=== PATIENT | female | born 1945 | race Hispanic/Latino ===

== ENCOUNTER 2017-03-14 17:10 | Inpatient (IN) | payer MEDICARE, MEDICAID ==
[2017-03-14 18:08] LABS: BASO # 0.1 K/uL (0.0-0.2); BASO % 1.2 % (0.0-2.0); EOS # 0.2 K/uL (0.0-0.7); EOS % 2.7 % (0.0-4.0); HEMATOCRIT 39.1 % (34.0-47.0); LYMPH % 29.7 % (20.0-40.0); MEAN CELL VOLUME 89.6 fl (81.0-99.0); MEAN CORPUSCULAR HEMOGLOBIN 30.5 pg (27.0-31.0); MEAN PLATELET VOLUME 6.9 fl (7.2-11.7); MONO # 0.5 K/uL (0.0-0.8); MONO % 8.1 % (0.0-10.0); NEUT # 3.8 K/uL (1.8-7.0); NEUT % 58.3 % (50.0-75.0); NRBC % 0.1 % (0.0-0.0); RED CELL DISTRIBUTION WIDTH 14.2 % (11.5-14.5); WHITE BLOOD COUNT 6.6 K/uL (4.8-10.8)
--- NOTE | 2017-03-14 18:10 | ED PDOC ---
HPI: Psych/Substance Abuse Time Seen by Provider: 03/14/17 17:25 Chief Complaint (Nursing): Psychiatric Evaluation Chief Complaint (Provider): Refusal to eat and changes in behavior, including aggression ED Caveat: Dementia History Per: EMS History/Exam Limitations: no limitations Onset/Duration Of Symptoms: Hrs Current Symptoms Are (Timing): Still Present Additional Complaint(s): Patient is a 71 year old female with a past medical history of Parkinson's, dementia, and diabetes who was transferred from [facility] in [place], [place] for refusal to eat and new changes in behavior including aggression towards staff. Denies any other medical complaints. PCP: Dr. Gary Gipson. Past Medical History Reviewed: Historical Data, Nursing Documentation, Vital Signs Vital Signs: Last Vital Signs Temp 98.6 F 03/14/17 17:12 Pulse 80 03/14/17 17:12 Resp 20 03/14/17 17:12 BP 149/86 03/14/17 17:12 Pulse Ox 100 03/14/17 17:12 - Medical History PMH: COPD, Dementia, Diabetes, HTN, Hypothyroidism, Parkinson's Disease, Schizophrenia Denies: Hepatitis, HIV, Chronic Kidney Disease, Seizures, Sexually Transmitted Disease - Surgical History Surgical History: No Surg Hx - Family History Family History: States: Unknown Family Hx - Living Arrangements Living Arrangements: Shelter/Assist [place] - Home Medications Home Medications: Ambulatory Orders Medication Instructions Recorded Ascorbic Acid [Vitamin C 500 mg 500 mg PO DAILY 08/04/16 Tab] Carbidopa/Levodopa 2 tab PO TID 08/04/16 [Carbidopa-Levodopa 25-100 Tab] Cholecalciferol (Vitamin D3) 2,000 unit PO DAILY 08/04/16 [Vitamin D3] Docusate [Colace] 100 mg PO BID PRN 08/04/16 Levothyroxine [Synthroid] 100 mcg PO DAILY 08/04/16 Multivitamin [Multi-Vitamin Daily] 1 tab PO DAILY 08/04/16 Polyethylene Glycol/Polyvinyl 1 drop EACHEYE TID PRN 08/04/16 [Artificial Tears] Pramipexole Di-HCl [Mirapex] 0.25 mg PO TID 08/04/16 Sitagliptin Phos/Metformin HCl 1 tab PO Q12H 08/04/16 [Janumet 50-1,000 mg Tablet] Albuterol/Ipratropium [Duoneb 3 3 ml INH RQ6 PRN #0 neb 08/11/16 mg/0.5 mg (3 ml) UD] OLANZapine [Zyprexa] 10 mg PO DAILY@1700 tab 08/11/16 Sulfamethoxazole/Trimethoprim 1 tab PO Q12 tab 08/11/16 [Bactrim DS Tab] - Allergies Allergies/Adverse Reactions: Allergies Allergy/AdvReac Type Severity Reaction Status Date / Time Penicillins Allergy RASH Verified 08/05/16 00:28 Review of Systems Review Of Systems: ROS cannot be obtained secondary to pt's inabilty to answer questions. (Patient is non-verbal.) Physical Exam - Reviewed Nursing Documentation Reviewed: Yes Vital Signs Reviewed: Yes - Physical Exam Cardiovascular/Chest: Positive for: Regular Rate, Rhythm. Negative for: Murmur Respiratory: Positive for: Normal Breath Sounds. Negative for: Accessory Muscle Use, Respiratory Distress Gastrointestinal/Abdominal: Positive for: Normal Exam, Soft. Negative for: Tenderness Extremity: Positive for: Other (Pill rolling tremor on upper extremities) Neurologic/Psych: Positive for: Alert, Other (Patient is non verbal). Negative for: Motor/Sensory Deficits (No focal) - Laboratory Results Result Diagrams: 03/14/17 17:42 - ECG O2 Sat by Pulse Oximetry: 100 (RA) Pulse Ox Interpretation: Normal Medical Decision Making Medical Decision Making: Time: 17:32 Initial impression: Changes in behavior Initial plan: * EKG * Labs * Urine Dipstick * Chest X-Ray Scribe Attestation: Documented by Aleida Griffith, acting as a scribe for Lane Lawson MD. Provider Scribe Attestation: All medical record entries made by the Scribe were at my direction and personally dictated by me. I have reviewed the chart and agree that the record accurately reflects my personal performance of the history, physical exam, medical decision making, and the department course for this patient. I have also personally directed, reviewed, and agree with the discharge instructions and disposition. Disposition - Clinical Impression Clinical Impression: Hypoglycemia, Schizophrenia, Dementia - Patient ED Disposition Is Patient to be Admitted: Yes - Disposition Disposition Time: 18:33 Condition: FAIR Forms: [employer] ([place]) - Pt Status Changed To: Hospital Disposition Of: Observation - POA Present On Arrival: None
[2017-03-14 18:21] LABS: CHLORIDE 100 mmol/L (98-107); POTASSIUM 4.3 MMOL/L (3.6-5.0); SODIUM 137 mmol/l (132-148)
[2017-03-14 18:23] LABS: BILIRUBIN,TOTAL 0.3 mg/dl (0.2-1.3); CARBON DIOXIDE 28 mmol/L (22-30); GFR AFRICAN-AMERICAN > 60
[2017-03-14 18:24] LABS: ALB/GLOB RATIO 0.8 (1.0-2.1); ALKALINE PHOSPHATASE 76 U/L (38-126); ALT/SGPT 23 U/L (9-52); AST/SGOT 31 U/L (14-36); BLOOD UREA NITROGEN 16 mg/dl (7-17); CALCIUM 9.8 mg/dL (8.4-10.2); GLUCOSE,RANDOM 83 mg/dL (65-105); TOTAL PROTEIN 8.3 G/DL (6.3-8.2)
[2017-03-14] MEDS ORDERED: Dextrose 50% SYRINGE Inj (50 ml) IVP ONE ×2 (18:32→23:24)
[2017-03-14] MEDS ORDERED: Dextrose 50% SYRINGE Inj (50 ml) ONE (18:38)
--- NOTE | 2017-03-14 18:46 | RAD ---
HISTORY: cough COMPARISON: No prior. FINDINGS: LUNGS: Mild hyperinflation with coarsened/ increased interstitial markings particularly prominent in the mid to lower lung zones. Rule out chronic changes of COPD or emphysema. There also appears to be some mild bibasilar atelectasis and or scarring right greater than left. . Chain sutures again noted left lung apex/upper lung field Mild biapical pleural thickening PLEURA: No effusion. No apparent pneumothorax apparent. CARDIOVASCULAR: Heart size within range of normal metallic clips again seen in the left hilar region. OSSEOUS STRUCTURES: No significant abnormalities. VISUALIZED UPPER ABDOMEN: Normal. OTHER FINDINGS: None. IMPRESSION: Mild hyperinflation with coarsened/ increased interstitial markings particularly prominent in the mid to lower lung zones. Rule out chronic changes of COPD or emphysema. There also appears to be some mild bibasilar atelectasis and or scarring right greater than left. See above discussion for additional findings and details. Mild biapical pleural thickening
[2017-03-14] MEDS: Dextrose 5%/0.45% NS 1,000 ML IV SCH (23:05)
[2017-03-15] MEDS ORDERED: Dextrose 50% SYRINGE Inj (50 ml) IVP PRN (00:19)
[2017-03-15 05:23] LABS: BASO # 0.1 K/uL (0.0-0.2); BASO % 0.8 % (0.0-2.0); EOS # 0.2 K/uL (0.0-0.7); EOS % 3.1 % (0.0-4.0); HEMATOCRIT 37.8 % (34.0-47.0); LYMPH # 1.9 K/uL (1.0-4.3); LYMPH % 29.4 % (20.0-40.0); MEAN CELL VOLUME 90.5 fl (81.0-99.0); MEAN CORPUSCULAR HEMOGLOBIN 29.8 pg (27.0-31.0); MEAN CORPUSCULAR HGB CONC 32.9 g/dL (33.0-37.0); MONO # 0.5 K/uL (0.0-0.8); MONO % 8.7 % (0.0-10.0); NEUT # 3.7 K/uL (1.8-7.0); RED CELL DISTRIBUTION WIDTH 14.3 % (11.5-14.5); WHITE BLOOD COUNT 6.3 K/uL (4.8-10.8)
[2017-03-15 05:25] LABS: ALB/GLOB RATIO 0.9 (1.0-2.1); ALKALINE PHOSPHATASE 69 U/L (38-126); ALT/SGPT 21 U/L (9-52); AST/SGOT 21 U/L (14-36); BILIRUBIN,TOTAL 0.3 mg/dl (0.2-1.3); BLOOD UREA NITROGEN 16 mg/dl (7-17); CALCIUM 9.3 mg/dL (8.4-10.2); CARBON DIOXIDE 30 mmol/L (22-30); CHLORIDE 101 mmol/L (98-107); GFR AFRICAN-AMERICAN > 60; GLUCOSE,RANDOM 255 mg/dL (65-105); POTASSIUM 4.7 MMOL/L (3.6-5.0); SODIUM 138 mmol/l (132-148); TOTAL PROTEIN 7.4 G/DL (6.3-8.2)
[2017-03-15] MEDS: Enoxaparin 30 mg Syringe SC SCH (09:30)
--- NOTE | 2017-03-15 10:24 | CARD ---
APPROVED REPORT EKG Measurement Heart [id number] <Conclusion> Normal sinus rhythm Low voltage QRS Possible Inferior infarct, age undetermined Abnormal ECG artefact present-recommend repeat
[2017-03-15] MEDS ORDERED: Magnesium Hydroxide Susp 30 ml UD PO PRN (10:29)
[2017-03-15] MEDS ORDERED: Divalproex 125 mg Sprinkle Capsule PO SCH (10:30)
[2017-03-15] MEDS ORDERED: PIMAVANSERIN TARTRATE PO SCH (10:30)
[2017-03-15] MEDS ORDERED: Insulin Lispro (humaLOG) 100 Units/ml Inj SC SCH (11:30)
[2017-03-15] MEDS: Dextrose 5%/0.45% NS 1,000 ML IV SCH (12:17)
--- NOTE | 2017-03-15 13:48 | CP.PCM.CON ---
History of Present Illness - History of Present Illness History of Present Illness: psychiatry consult ordered by: ann reason: schizophrenia cc: i know who you are hpi: 71 yo female with history of schizophrenia per chart and also chart states pt has parkinson's as well as dementia. pt is living in a [place] [facility] and under the care of dr. trinidad for psychiatry there. she was apparently showing aggression and behavioral changes acutely. currently she is unable to provide any history and confabulates answers. past psych: was on [facility] in july and on zyprexa. since her return to [place] [facility] she seems to have been shifted to carbidopa, depakote and nuplazid ) prior to the step admission she was taking seroquel. per chart, her behaviors were stabilized on zyprexa. social history: lives in [place] [facility]. cannot give details. subtance abuse: none medical: as above. no h&p on chart to review. no ua or urine culture results. depakote level is 12 mse: pt oriented to self only. she is calm currently. she confabulates answers and does not directly answer questions. she is not exhibiting any psychotic symptoms when seen by this ad writer. she has gross impairments in i/j and memory. assessment: parkinsons disease with hallucinations ? history of schizophrenia per chart dementia per chart recommendations: pt lacks capacity to sign into a mental health facility as a voluntary pt her parkinsons should be managed by neurology would look for infections other causes for her mental status changes could use low dose of zyprexa prn for psychosis/agitation- 2.5 mg prn and monitor for eps/dystonia would avoid use of anticholinergics and benzodiazapines as they may worsen her confusion can adjust depakote upwards for agitation- would recheck level in 2-3 days Past Patient History - Past Medical History & Family History Past Medical History?: Yes - Past Social History Smoking Status: Unknown If Ever Smoked - CARDIAC Hx Cardiac Disorders: Yes Hx Hypertension: Yes - PULMONARY Hx Respiratory Disorders: Yes Hx Chronic Obstructive Pulmonary Disease (COPD): Yes - NEUROLOGICAL Hx Neurological Disorder: Yes Hx Dementia: Yes Hx Parkinson's Disease: Yes Hx Seizures: No - HEENT Hx HEENT Problems: No - RENAL Hx Chronic Kidney Disease: No - ENDOCRINE/METABOLIC Hx Endocrine Disorders: Yes Hx Diabetes Mellitus Type 2: Yes Hx Hypothyroidism: Yes - HEMATOLOGICAL/ONCOLOGICAL Hx Blood Disorders: No Hx Human Immunodeficiency Virus (HIV): No - INTEGUMENTARY Hx Dermatological Problems: No - MUSCULOSKELETAL/RHEUMATOLOGICAL Hx Musculoskeletal Disorders: No Hx Falls: No - GASTROINTESTINAL Hx Gastrointestinal Disorders: Yes Hx Gastroesophageal Reflux: Yes - GENITOURINARY/GYNECOLOGICAL Hx Genitourinary Disorders: No Hx Sexually Transmitted Disorders: No - PSYCHIATRIC Hx Psychophysiologic Disorder: Yes Hx Schizophrenia: Yes - SURGICAL HISTORY Hx Surgeries: No Other/Comment: Lung Sx? - ANESTHESIA Hx Anesthesia: Yes Hx Anesthesia Reactions: No Meds Allergies/Adverse Reactions: Allergies Allergy/AdvReac Type Severity Reaction Status Date / Time Penicillins Allergy RASH Verified 08/05/16 00:28 - Medications Medications: Current Medications Ascorbic Acid (Vitamin C 500 Mg Tab) 500 mg PO DAILY [facility] Carbidopa/Levodopa (Sinemet) 2 tab PO TID [facility] Clonazepam (Klonopin) 1 mg PO DAILY [facility] Last Admin: 03/15/17 12:17 Dose: 1 mg Dextrose (Dextrose 50% Inj) 50 ml IVP PRN PRN PRN Reason: Low blood sugar Dimethicone (Proshield Plus Skin Protectant) 1 applic TOP Q8 [facility] Divalproex Sodium (Depakote Sprinkles) 250 mg PO Q8 [facility] Docusate Sodium (Colace) 100 mg PO BID [facility] Enoxaparin Sodium (Lovenox) 30 mg SC DAILY [facility] PRN Reason: Protocol Last Admin: 03/15/17 09:30 Dose: 30 mg Dextrose/Sodium Chloride (Dextrose 5%/0.45% Ns 1000 Ml) 1,000 mls @ 80 mls/hr IV .[id number] [facility] Stop: 03/15/17 22:21 Last Admin: 03/15/17 12:17 Dose: 80 mls/hr Levothyroxine Sodium (Synthroid) 150 mcg PO DAILY [facility] Magnesium Hydroxide (Milk Of Magnesia) 30 ml PO HS PRN PRN Reason: Constipation Megestrol Acetate (Megace) 20 mg PO DAILY [facility] Last Admin: 03/15/17 09:27 Dose: 20 mg Metformin HCl (Glucophage) 500 mg PO BID [facility] Sitagliptin Phosphate (Januvia) 100 mg PO DAILY [facility] Results - Vital Signs Recent Vital Signs: Last Vital Signs Temp 97.7 F 03/15/17 08:34 Pulse 112 H 03/15/17 08:34 Resp 20 03/15/17 08:34 BP 131/68 03/15/17 08:34 Pulse Ox 90 L 03/15/17 08:34 - Labs Result Diagrams: 03/15/17 04:20 03/15/17 04:20
[2017-03-15 17:32] LABS: T4 3.38 ug/dl (5.5-11.0)
[2017-03-15] MEDS: Divalproex 125 mg Sprinkle Capsule PO SCH (21:28)
[2017-03-15] MEDS ORDERED: Insulin Detemir 100 Units/ml Inj SC SCH (22:00)
[2017-03-15] MEDS: Insulin Regular 100 units/ml SC SCH (23:00)
[2017-03-16] MEDS ORDERED: Sodium Chloride 0.9% 1,000 ML IV SCH (00:45)
[2017-03-16] MEDS: Proshield Plus GEL TOP SCH ×3 (01:45→17:33)
[2017-03-16 02:48] LABS: VENOUS BLOOD GAS BASE EXCESS 6.5 mmol/L (0.0-2.0); VENOUS BLOOD GAS MODE ROOM AIR; VENOUS BLOOD GAS PCO2 62 mmHg (40-60); VENOUS BLOOD PH 7.35 (7.32-7.43)
[2017-03-16 02:50] LABS: CHLORIDE 98 mmol/L (98-107)
[2017-03-16 02:51] LABS: POTASSIUM 4.5 MMOL/L (3.6-5.0); SODIUM 138 mmol/l (132-148)
[2017-03-16 02:53] LABS: GFR AFRICAN-AMERICAN > 60
[2017-03-16 02:54] LABS: BLOOD UREA NITROGEN 14 mg/dl (7-17); CALCIUM 9.2 mg/dL (8.4-10.2); CARBON DIOXIDE 31 mmol/L (22-30); GLUCOSE,RANDOM 239 mg/dL (65-105)
[2017-03-16] MEDS: Divalproex 125 mg Sprinkle Capsule PO SCH ×3 (05:17→22:15)
[2017-03-16] MEDS: Insulin Regular 100 units/ml SC SCH ×4 (06:39→22:14)
[2017-03-16 08:48] VITALS: RESP 18
[2017-03-16] MEDS: Enoxaparin 30 mg Syringe SC SCH (09:14)
[2017-03-16] MEDS: Levothyroxine 150 MCG TAB PO SCH (09:15)
[2017-03-16 12:45] LABS: FOLATE > 20.0 ng/mL
[2017-03-16 12:59] LABS: RBC URINE 5 /hpf (0-3); URINE BILIRUBIN NEGATIVE (NEGATIVE); URINE BLOOD NEGATIVE (NEGATIVE); URINE COLOR YELLOW (YELLOW); URINE GLUCOSE (UA) NEG (Normal); URINE KETONE TRACE mg/dL (NEGATIVE); URINE LEUKOCYTE ESTERASE SMALL Leu/uL (Negative); URINE PROTEIN NEGATIVE (NEGATIVE); URINE UROBILINOGEN 0.2-1.0 mg/dL (0.2-1.0); WBC URINE 23 /hpf (0-5)
[2017-03-17] MEDS: Proshield Plus GEL TOP SCH ×3 (01:51→08:48)
[2017-03-17] MEDS: Divalproex 125 mg Sprinkle Capsule PO SCH (05:51)
[2017-03-17] MEDS: Insulin Regular 100 units/ml SC SCH (07:35)
[2017-03-17 08:08] VITALS: BP 95/59; PULSE 91; TEMP 97.9; O2SAT 95
--- NOTE | 2017-03-17 08:17 | CON ---
DATE OF EVALUATION: 03/16/2017 LOCATION: The patient is in room number 654, bed 2. REASON FOR CONSULTATION: Change in mental status. CHIEF COMPLAINT: The patient was admitted with past medical history of dementia as per the history from the [facility]. The patient did stop eating and have some aggressive behavior. From neurologic point of view, I was called in to evaluate her for further management. HISTORY OF PRESENT ILLNESS: Ms. Haily Nguyễn is a 71-year-old right handed female presenting with change in mental status. No clear history of involuntary movements. No history of fall. No history of loss of consciousness. Recommended a testing being on hold because she refuse to go for the testing. PAST MEDICAL HISTORY: Dementia, diabetes, hypertension, hypothyroidism, Parkinson's disease, and schizophrenia. PAST SURGICAL HISTORY: No surgical history. ALLERGIES: SHE IS ALLERGIC TO PENICILLIN. MEDICATIONS: Vitamin C, Sinemet, levothyroxine, multivitamins, pramipexole, Janumet, albuterol, olanzapine and Bactrim. REVIEW OF SYSTEMS: As per H and P. PHYSICAL EXAMINATION VITAL SIGNS: Blood pressure of 110/54, mean arterial pressure of 79, respiratory rate of 16 and temperature of 97.5. NECK: Supple. No carotid bruits. HEART: Sounds regular. CHEST: Fair air entry. EXTREMITIES: Right leg externally rotated. NEUROLOGIC EXAMINATION: MENTAL STATUS EXAMINATION: The patient is awake, alert and oriented to person and place. Speech is hypophonic and slurred. CRANIAL NERVE EXAMINATION: Right eye ptosis. 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 Hearing is normal. Tongue is midline. Good gag. Neck flexion is 4/5. MOTOR EXAMINATION: She could able to lift both upper extremities against gravity. A significant distal muscle group atrophy. DEEP TENDON REFLEXES: Are absent. The plantar are equally response. COORDINATION: She could able to do reach the target. CONCLUSION: Upon reviewing her history and neurological examination, Ms. 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 The patient is also suffering from other disorders; dementia and neuropathy. These are all preexisting condition. However, Parkinson's disease is being on medication. I could not able to quantify the disease pattern. RECOMMENDATIONS: 1. The patient should be kept aspiration precautions, speech and swallow evaluation. 2. The patient should have a blood workup for angiotensin receptor antibodies. 3. The patient can be benefitted because of considering her age, I would like to start empirically methionine to see the response. If no response, then I will discontinue it. 4. The patient is also recommended to have CT of the chest to rule out thymoma. The patient will be hydrated well. The patient will be followed closely while she is in the hospital. Nigel Herrera MD MTDD
[2017-03-17] MEDS: Enoxaparin 30 mg Syringe SC SCH (08:53)
[2017-03-17] MEDS: Levothyroxine 150 MCG TAB PO SCH (08:54)
--- NOTE | 2017-03-17 12:09 | CP.PCM.HP ---
History of Present Illness - History of Present Illness History of Present Illness: This is a 71 y/o female admitted for. Past Patient History - Past Medical History & Family History Past Medical History?: Yes - Past Social History Smoking Status: Unknown If Ever Smoked - CARDIAC Hx Cardiac Disorders: Yes Hx Hypertension: Yes - PULMONARY Hx Chronic Obstructive Pulmonary Disease (COPD): Yes - NEUROLOGICAL Hx Neurological Disorder: Yes Hx Dementia: Yes Hx Parkinson's Disease: Yes Hx Seizures: No - HEENT Hx HEENT Problems: No - RENAL Hx Chronic Kidney Disease: No - ENDOCRINE/METABOLIC Hx Diabetes Mellitus Type 2: Yes Hx Hypothyroidism: Yes - HEMATOLOGICAL/ONCOLOGICAL Hx Blood Disorders: No Hx Human Immunodeficiency Virus (HIV): No - INTEGUMENTARY Hx Dermatological Problems: No - MUSCULOSKELETAL/RHEUMATOLOGICAL Hx Musculoskeletal Disorders: No Hx Falls: No - GASTROINTESTINAL Hx Gastroesophageal Reflux: Yes - GENITOURINARY/GYNECOLOGICAL Hx Genitourinary Disorders: No Hx Sexually Transmitted Disorders: No - PSYCHIATRIC Hx Psychophysiologic Disorder: Yes Hx Schizophrenia: Yes - SURGICAL HISTORY Hx Surgeries: No Other/Comment: Lung Sx? - ANESTHESIA Hx Anesthesia: Yes Hx Anesthesia Reactions: No Meds Allergies/Adverse Reactions: Allergies Allergy/AdvReac Type Severity Reaction Status Date / Time Penicillins Allergy RASH Verified 08/05/16 00:28 Results - Vital Signs Recent Vital Signs: Last Vital Signs Temp 97.9 F 03/17/17 08:07 Pulse 91 H 03/17/17 08:07 Resp 18 03/17/17 08:07 BP 95/59 L 03/17/17 08:07 Pulse Ox 95 03/17/17 08:07 - Labs Result Diagrams: 03/15/17 04:20 03/16/17 02:45 Labs: Laboratory Results - last 24 hr 03/15/17 03/16/17 03/16/17 16:46 11:17 12:43 ESR POC Glucose (mg/dL) 198 H Folate > 20.0 Urine Color Yellow Urine Clarity Slighty-cloudy Urine pH 7.0 Ur Specific [place] 1.010 Urine Protein Negative Urine Glucose (UA) Neg Urine Ketones Trace Urine Blood Negative Urine Nitrate Negative Urine Bilirubin Negative Urine Urobilinogen 0.2-1.0 Ur Leukocyte Esterase Small Urine RBC (Auto) 5 H Urine Microscopic WBC 23 H Ur Squamous Epith Cells 4 03/16/17 03/16/17 03/17/17 16:45 21:47 05:53 ESR POC Glucose (mg/dL) 167 H 169 H 232 H Folate Urine Color Urine Clarity Urine pH Ur Specific [place] Urine Protein Urine Glucose (UA) Urine Ketones Urine Blood Urine Nitrate Urine Bilirubin Urine Urobilinogen Ur Leukocyte Esterase Urine RBC (Auto) Urine Microscopic WBC Ur Squamous Epith Cells 03/17/17 03/17/17 07:30 11:04 ESR 87 H POC Glucose (mg/dL) 275 H Folate Urine Color Urine Clarity Urine pH Ur Specific [place] Urine Protein Urine Glucose (UA) Urine Ketones Urine Blood Urine Nitrate Urine Bilirubin Urine Urobilinogen Ur Leukocyte Esterase Urine RBC (Auto) Urine Microscopic WBC Ur Squamous Epith Cells
--- NOTE | 2017-03-17 12:11 | CP.PCM.PN ---
Subjective - Date & Time of Evaluation Date of Evaluation: 03/17/17 Time of Evaluation: 12:11 - Subjective Subjective: Patient is stable No aggressive behavior Sleeps a lot Has poor intake. Objective - Vital Signs/Intake and Output Vital Signs (last 24 hours): Temp Pulse Resp BP Pulse Ox 97.9 F 91 H 18 95/59 L 95 03/17/17 08:07 03/17/17 08:07 03/17/17 08:07 03/17/17 08:07 03/17/17 08:07 - Medications Medications: Current Medications Ascorbic Acid (Vitamin C 500 Mg Tab) 500 mg PO DAILY [facility] Last Admin: 03/17/17 08:53 Dose: 500 mg Carbidopa/Levodopa (Sinemet) 2 tab PO TID [facility] Last Admin: 03/17/17 08:47 Dose: 2 tab Clonazepam (Klonopin) 1 mg PO DAILY [facility] Last Admin: 03/17/17 09:19 Dose: 1 mg Dextrose (Dextrose 50% Inj) 50 ml IVP PRN PRN PRN Reason: Low blood sugar Dimethicone (Proshield Plus Skin Protectant) 1 applic TOP Q8 [facility] Last Admin: 03/17/17 08:48 Dose: 1 applic Divalproex Sodium (Depakote Sprinkles) 250 mg PO Q8@0500,1300,2100 [facility] Last Admin: 03/17/17 05:51 Dose: Not Given Docusate Sodium (Colace) 100 mg PO BID [facility] Last Admin: 03/17/17 08:52 Dose: 100 mg Enoxaparin Sodium (Lovenox) 30 mg SC DAILY [facility] PRN Reason: Protocol Last Admin: 03/17/17 08:53 Dose: 30 mg Insulin Human Regular (Humulin R) 0 units SC ACHS [facility] PRN Reason: Protocol Last Admin: 03/17/17 07:35 Dose: 2 u Levothyroxine Sodium (Synthroid) 150 mcg PO DAILY [facility] Last Admin: 03/17/17 08:54 Dose: 150 mcg Magnesium Hydroxide (Milk Of Magnesia) 30 ml PO HS PRN PRN Reason: Constipation Megestrol Acetate (Megace) 20 mg PO DAILY [facility] Last Admin: 03/17/17 08:53 Dose: 20 mg Metformin HCl (Glucophage) 500 mg PO BID [facility] Last Admin: 03/17/17 08:53 Dose: 500 mg Pyridostigmine [place] (Mestinon Tab) 60 mg PO TID [facility] Last Admin: 03/17/17 08:51 Dose: 60 mg Sitagliptin Phosphate (Januvia) 100 mg PO DAILY [facility] Last Admin: 03/17/17 08:51 Dose: 100 mg - Labs Labs: 03/16/17 02:45
--- NOTE | 2017-03-17 12:11 | CP.PCM.PN ---
Subjective - Date & Time of Evaluation Date of Evaluation: 03/16/17 Time of Evaluation: 10:40 - Subjective Subjective: Patient remains stable Still with poor intake. Objective - Vital Signs/Intake and Output Vital Signs (last 24 hours): Temp Pulse Resp BP Pulse Ox 97.9 F 91 H 18 95/59 L 95 03/17/17 08:07 03/17/17 08:07 03/17/17 08:07 03/17/17 08:07 03/17/17 08:07 - Medications Medications: Current Medications Ascorbic Acid (Vitamin C 500 Mg Tab) 500 mg PO DAILY [facility] Last Admin: 03/17/17 08:53 Dose: 500 mg Carbidopa/Levodopa (Sinemet) 2 tab PO TID [facility] Last Admin: 03/17/17 08:47 Dose: 2 tab Clonazepam (Klonopin) 1 mg PO DAILY [facility] Last Admin: 03/17/17 09:19 Dose: 1 mg Dextrose (Dextrose 50% Inj) 50 ml IVP PRN PRN PRN Reason: Low blood sugar Dimethicone (Proshield Plus Skin Protectant) 1 applic TOP Q8 [facility] Last Admin: 03/17/17 08:48 Dose: 1 applic Divalproex Sodium (Depakote Sprinkles) 250 mg PO Q8@0500,1300,2100 [facility] Last Admin: 03/17/17 05:51 Dose: Not Given Docusate Sodium (Colace) 100 mg PO BID [facility] Last Admin: 03/17/17 08:52 Dose: 100 mg Enoxaparin Sodium (Lovenox) 30 mg SC DAILY [facility] PRN Reason: Protocol Last Admin: 03/17/17 08:53 Dose: 30 mg Insulin Human Regular (Humulin R) 0 units SC ACHS [facility] PRN Reason: Protocol Last Admin: 03/17/17 07:35 Dose: 2 u Levothyroxine Sodium (Synthroid) 150 mcg PO DAILY [facility] Last Admin: 03/17/17 08:54 Dose: 150 mcg Magnesium Hydroxide (Milk Of Magnesia) 30 ml PO HS PRN PRN Reason: Constipation Megestrol Acetate (Megace) 20 mg PO DAILY [facility] Last Admin: 03/17/17 08:53 Dose: 20 mg Metformin HCl (Glucophage) 500 mg PO BID [facility] Last Admin: 03/17/17 08:53 Dose: 500 mg Pyridostigmine [place] (Mestinon Tab) 60 mg PO TID [facility] Last Admin: 03/17/17 08:51 Dose: 60 mg Sitagliptin Phosphate (Januvia) 100 mg PO DAILY [facility] Last Admin: 03/17/17 08:51 Dose: 100 mg - Labs Labs: 03/16/17 02:45
--- NOTE | 2017-03-17 12:18 | CP.PCM.DIS ---
Provider - Provider Date of Admission: 03/15/17 13:37 Attending physician: Erlin Garcia MD Hospital Course - Lab Results Lab Results: Most Recent Lab Values WBC 6.3 K/uL (4.8-10.8) 03/15/17 04:20 RBC 4.18 Mil/uL (3.80-5.20) 03/15/17 04:20 Hgb 12.4 g/dL (12.0-16.0) 03/15/17 04:20 Hct 37.8 % (34.0-47.0) 03/15/17 04:20 MCV 90.5 fl (81.0-99.0) 03/15/17 04:20 MCH 29.8 pg (27.0-31.0) 03/15/17 04:20 MCHC 32.9 g/dL (33.0-37.0) L 03/15/17 04:20 RDW 14.3 % (11.5-14.5) 03/15/17 04:20 Plt Count 530 K/uL (130-400) H 03/15/17 04:20 MPV 7.0 fl (7.2-11.7) L 03/15/17 04:20 Neut % (Auto) 58.0 % (50.0-75.0) 03/15/17 04:20 Lymph % (Auto) 29.4 % (20.0-40.0) 03/15/17 04:20 [place] % (Auto) 8.7 % (0.0-10.0) 03/15/17 04:20 Eos % (Auto) 3.1 % (0.0-4.0) 03/15/17 04:20 Baso % (Auto) 0.8 % (0.0-2.0) 03/15/17 04:20 Neut # 3.7 K/uL (1.8-7.0) 03/15/17 04:20 Lymph # 1.9 K/uL (1.0-4.3) 03/15/17 04:20 [place] # 0.5 K/uL (0.0-0.8) 03/15/17 04:20 Eos # 0.2 K/uL (0.0-0.7) 03/15/17 04:20 Baso # 0.1 K/uL (0.0-0.2) 03/15/17 04:20 ESR 87 mm/hr (0-30) H 03/17/17 07:30 pO2 21 mm/Hg (30-55) L 03/16/17 02:39 VBG pH 7.35 (7.32-7.43) 03/16/17 02:39 VBG pCO2 62 mmHg (40-60) H 03/16/17 02:39 VBG HCO3 28.2 mmol/L 03/16/17 02:39 VBG Total CO2 36.1 mmol/L (22-28) H 03/16/17 02:39 VBG O2 Sat (Calc) 36.1 % (40-65) L 03/16/17 02:39 VBG Base Excess 6.5 mmol/L (0.0-2.0) H 03/16/17 02:39 VBG Potassium 4.6 mmol/L (3.6-5.2) 03/16/17 02:39 Sodium 136.0 mmol/L (132-148) 03/16/17 02:39 Chloride 99.0 mmol/L (98-107) 03/16/17 02:39 Glucose 244 mg/dL (65-105) H 03/16/17 02:39 Lactate 2.8 mmol/L (0.7-2.1) H 03/16/17 02:39 FiO2 21.0 % 03/16/17 02:39 Crit Value Called To Isaías mensah 03/16/17 02:39 Crit Value Called By Marlyn resendiz 03/16/17 02:39 Crit Value Read Back Y 03/16/17 02:39 Blood Gas Notified Time 247 03/16/17 02:39 Sodium 138 mmol/l (132-148) 03/16/17 02:45 Potassium 4.5 MMOL/L (3.6-5.0) 03/16/17 02:45 Chloride 98 mmol/L (98-107) 03/16/17 02:45 Carbon Dioxide 31 mmol/L (22-30) H 03/16/17 02:45 Anion Gap 14 (10-20) 03/16/17 02:45 BUN 14 mg/dl (7-17) 03/16/17 02:45 Creatinine 0.7 mg/dL (0.7-1.2) 03/16/17 02:45 Est GFR ( Amer) > 60 03/16/17 02:45 Est GFR (Non-Af Amer) > 60 03/16/17 02:45 POC Glucose (mg/dL) 275 mg/dL (65-110) H 03/17/17 11:04 Random Glucose 239 mg/dL (65-105) H 03/16/17 02:45 Hemoglobin A1c 8.8 % (4.2-6.5) H 03/15/17 16:46 Calcium 9.2 mg/dL (8.4-10.2) 03/16/17 02:45 Total Bilirubin 0.3 mg/dl (0.2-1.3) 03/15/17 04:20 AST 21 U/L (14-36) 03/15/17 04:20 ALT 21 U/L (9-52) 03/15/17 04:20 Alkaline Phosphatase 69 U/L (38-126) 03/15/17 04:20 Ammonia < 9 umo/L (11-51) L 03/15/17 16:46 Total Protein 7.4 G/DL (6.3-8.2) 03/15/17 04:20 Albumin 3.5 g/dL (3.5-5.0) 03/15/17 04:20 Globulin 3.9 gm/dL (2.2-3.9) 03/15/17 04:20 Albumin/Globulin Ratio 0.9 (1.0-2.1) L 03/15/17 04:20 Vitamin B12 > 1000 pg/mL (239-931) H 03/15/17 16:46 Folate > 20.0 ng/mL 03/15/17 16:46 Thyroxine (T4) 3.38 ug/dl (5.5-11.0) L 03/15/17 16:46 TSH 3rd Generation 94.60 mIU/ML (0.46-4.68) H 03/15/17 16:46 Venous Blood Potassium 4.6 mmol/L (3.6-5.2) 03/16/17 02:39 Urine Color Yellow (YELLOW) 03/16/17 12:43 Urine Clarity Slighty-cloudy (Clear) 03/16/17 12:43 Urine pH 7.0 (5.0-8.0) 03/16/17 12:43 Ur Specific [place] 1.010 (1.003-1.030) 03/16/17 12:43 Urine Protein Negative mg/dL (NEGATIVE) 03/16/17 12:43 Urine Glucose (UA) Neg mg/dL (Normal) 03/16/17 12:43 Urine Ketones Trace mg/dL (NEGATIVE) 03/16/17 12:43 Urine Blood Negative (NEGATIVE) 03/16/17 12:43 Urine Nitrate Negative (NEGATIVE) 03/16/17 12:43 Urine Bilirubin Negative (NEGATIVE) 03/16/17 12:43 Urine Urobilinogen 0.2-1.0 mg/dL (0.2-1.0) 03/16/17 12:43 Ur Leukocyte Esterase Small [place]/uL (Negative) 03/16/17 12:43 Urine RBC (Auto) 5 /hpf (0-3) H 03/16/17 12:43 Urine Microscopic WBC 23 /hpf (0-5) H 03/16/17 12:43 Ur Squamous Epith Cells 4 /hpf (0-5) 03/16/17 12:43 Valproic Acid 12.2 ug/mL (50.0-100.0) L 03/14/17 17:42 RPR Nonreactive (NONREACTIVE) 03/15/17 16:46 - Hospital Course Hospital Course: This is a 71 y/o female admitted for aggressive behavior. Discharge Plan - Follow Up Plan Condition: FAIR Disposition: HOME/ ROUTINE
--- NOTE | 2017-03-19 09:37 | PQF SKIN ---
This form is a permanent part of the medical record DR. ADAIR CASTILLO: PLEASE CONFIRM IF PATIENT HAS PRESSURE ULCER OF BUTTOCK STATE 3 POA. WOUND CARE NURSE ON 03/15 DOCUMENTS STAGE 3 RIGHT MEDIAL BUTTOCK PRESSURE ULCER. Clarification of your documentation is requested to better reflect the severity of illness and intensity of treatment of your patient. Indicators present [] Documentation of skin ulcer [] Skin breakdown [] Skin wounds [] Wound Care consult [] Nursing assessment [] Mobility decreased [] Poor nutrition [] Other: [] Location in the medical record that reflects the above clinical findings: [] Treatment Provided: [] PHYSICIAN'S RESPONSE Based on your medical judgment of the clinical indicators outlined above, are you treating this patient for a known or suspected: Present On Admission [] Skin ulcer NOS Please document site [] [] Yes [] No [] Breakdown, [] Exposed fat layer, [] Necrosis muscle, [] necrosis bone. Please document site [] [] PVD/PAD associated ulcer [] Yes [] No [] Diabetic ulcer Please document site [] [] Yes [] No [] Other, please indicate [] [] Yes [] No [] If Unable to Determine, please check the box, sign and date. In responding to this query, please exercise your independent professional judgment. The fact that a question is asked does not imply that any particular answer is desired or expected. Thank you for your clarification on this documentation. If you have any questions please call:[ ] * Thank you, * MAYTE CAMPO [ [phone] manager car Pressure Ulcer Stage Descriptions *if the ulcer deteriorates during the admission/encounter, report the deepest stage of ulceration Stage I: Intact skin with non-blanchable redness of a localized area usually over a bony prominence; darkly pigmented skin may not have visible blanching Stage II: Partial thickness loss of dermis presenting as a shallow open ulcer with a red pink wound bed, without slough - may also present as an intact or open/ruptured serum filled blister Stage III: Full thickness tissue loss; subcutaneous fat may be visible but bone , tendon or muscle are not exposed. Slough may be present but does not obscur the depth of tissue loss - may include undermining and tunneling Stage IV: Full thickness tissue loss with exposed bone, tendon or muscle - slough eschar may be present on some parts of the wound bed; often includes undermining and tunneling Unstageable: Full thickness tissue loss in which the base of the ulcer is convered by slough and/or eschar *if the "unstageable ulcer" is "staged" during the admission/encounter, report the stage Suspected Deep Tissue Injury: Purple or maroon localized area of discolored intact skin or blood filled blister d/t damage of the underlying soft tissue from pressure and/or sheer. The wound may further evolve and become covered by a thin eschar. Evolution may be rapid exposing additional layers of tissue even with optimal treatment.~~~~~~~~~~~~~~~~~~~~~~~~~~~~~~~~~~~~~~~~~~~~~~~~~~~~~~~~~ ~~~~~~~~~~~~~~~~~~~~~~~~~~~~~~~~~~~~~~~~~~~~~~~~~~~~~~~~~~~~~~~~ NPCRISTINE; 2006 REFERENCE: CITLALLI LEARY
[2017-03-22 18:08] LABS: VGCC ANTIBODY ASSAY <30 pmol/L (<30)
[2017-03-22 22:02] LABS: ACETYLCHOLINE REC BIND AB 0.43 nmol/L (<=0.30)
== END 2017-03-17 12:37 | DRG 637 ==
LOC: H.ER 17:10 → H.ERHOLD 18:34 → H.MEDSURG1 21:12 → OBSVTOIN 03-15 13:37
PROVIDERS: ADMIT Family Medicine; ATTEND Family Medicine
DX: E11.649 Type 2 diabetes mellitus with hypoglycemia without coma (principal); L89.313 Pressure ulcer of right buttock, stage 3; F03.91 Unspecified dementia, unspecified severity, with behavioral disturbance; E11.42 Type 2 diabetes mellitus with diabetic polyneuropathy; G20 Parkinson's disease; F20.9 Schizophrenia, unspecified; E03.9 Hypothyroidism, unspecified; H02.401 Unspecified ptosis of right eyelid; I10 Essential (primary) hypertension; J44.9 Chronic obstructive pulmonary disease, unspecified; K21.9 Gastro-esophageal reflux disease without esophagitis; F45.9 Somatoform disorder, unspecified; G70.00 Myasthenia gravis without (acute) exacerbation; Z88.0 Allergy status to penicillin